=== PATIENT | male | born 1945 | race Two or more races ===

== ENCOUNTER → 2019-02-14 | Outpatient (CLI) | payer MEDICARE, MEDICAID ==
[~2019-02-14] MED LIST: ATORVASTATIN PO; BLOOD PRESSURE; DOXAZOSIN PO; HYDR-3237 PO; MELO7.5T31 PO; MOME13HF2 INH; PREDNISOLONE PO; REGADENOSON 0.4 MG/5 ML SYRINGE ONE; TAMSULOSIN
== END | disposition home or self-care (01) ==
LOC: CFH 08:11
PROVIDERS: ATTEND Internal Medicine Cardiovascular Disease
DX: I25.9 Chronic ischemic heart disease, unspecified (principal); I25.10 Atherosclerotic heart disease of native coronary artery without angina pectoris
CPT/HCPCS: 78452; 93017; A9502; J2785

== ENCOUNTER → 2020-02-11 | Outpatient (CLI) | payer MEDICARE, MEDICAID ==
[~2020-02-11] MED LIST changes: -REGADENOSON 0.4 MG/5 ML SYRINGE ONE
== END | disposition home or self-care (01) ==
LOC: CFH 10:02
PROVIDERS: ATTEND Internal Medicine Cardiovascular Disease
DX: I08.8 Other rheumatic multiple valve diseases (principal); I25.10 Atherosclerotic heart disease of native coronary artery without angina pectoris; I10 Essential (primary) hypertension
CPT/HCPCS: 93306

== ENCOUNTER 2021-05-15 08:27 | Observation (INO) | payer MEDICARE, MEDICAID ==
[~2021-05-15] VITALS: Ht 170.2 cm; Wt 74.3 kg
[2021-05-15] MEDS ORDERED: ATOR40TA PO (10:13)
[2021-05-15] MEDS ORDERED: AMLO-150 PO (10:13)
[2021-05-15] MEDS ORDERED: ASPI81TA45 PO (10:13)
[2021-05-15] MEDS ORDERED: TELM80TA PO (10:13)
[2021-05-15 10:16] VITALS: BP 157/78
[2021-05-15 10:21] LABS: BASOPHILS % (AUTO) 1 % (0-1); EOSINOPHILS % (AUTO) 1 % (1-7); LYMPHOCYTES % (AUTO) 34 % (22-44); MEAN CORPUSCULAR HEMOGLOBIN 30.6 pg (27.5-34.5); MEAN PLATELET VOLUME 9.4 fL (7.4-10.4); MONOCYTES % (AUTO) 8 % (2-9); NEUTROPHILS % (AUTO) 56 % (42-75); PLATELET COUNT 241 x10^3/uL (130-400); RED BLOOD COUNT 4.49 x10^6/uL (4.38-5.82); RED CELL DISTRIBUTION WIDTH 14.1 % (9.4-14.8)
[2021-05-15 10:30] LABS: ANION GAP 3 mmol/L (5-15); CALCIUM 8.9 mg/dL (8.5-10.1); CHLORIDE 109 mmol/L (98-107); CREATININE 1.01 mg/dL (0.7-1.3); INTERNATIONAL NORMALIZED RATIO 0.97 (0.93-1.1); PROTHROMBIN TIME 10.4 Seconds (9.6-11.5)
[2021-05-15] MEDS ORDERED: PLEASE ENTER HEIGHT AND WEIGHT MC SCH (10:30)
[2021-05-15] MEDS ORDERED: ASPIRIN 325 MG TABLET EC PO ONE (10:30)
[2021-05-15] MEDS ORDERED: FENTANYL PF 100 MCG/2ML ONE (11:33)
[2021-05-15] MEDS ORDERED: MIDAZOLAM 1 MG/ML, 5ML ONE (11:33)
[2021-05-15] MEDS ORDERED: LIDOCAINE-MPF 1%, 5ML ONE (11:34)
[2021-05-15] MEDS ORDERED: VERAPAMIL 2.5 MG/ML, 2ML ONE (11:34)
[2021-05-15] MEDS ORDERED: HEPARIN 1,000 UNITS/ML, 10ML ONE (11:34)
[2021-05-15] MEDS ORDERED: TICAGRELOR 90 MG TABLET ONE (11:34)
[2021-05-15] MEDS ORDERED: BIVALIRUDIN 250 MG ONE ×2 (11:34→12:21)
[2021-05-15] MEDS ORDERED: ASPIRIN 325 MG TABLET EC ONE (12:18)
[2021-05-15] MEDS: SODIUM CHLORIDE 0.9% 1,000 ML IV SCH ×3 (12:30→22:03)
[2021-05-15] MEDS ORDERED: BIVALIRUDIN 250 MG in SODIUM CHLORIDE 0.9% 50 ML IV SCH (12:30)
[2021-05-15] MEDS ORDERED: ZOLPIDEM 5MG TABLET PO PRN (12:30)
[2021-05-15 13:46] VITALS: BP 151/76
[2021-05-15 19:24] VITALS: BP 155/73
[2021-05-15] MEDS: TICAGRELOR 90 MG TABLET PO SCH (20:07)
[2021-05-15] MEDS ORDERED: ATORVASTATIN 40 MG TABLET PO SCH (21:00)
[2021-05-16 01:31] VITALS: BP 148/62
[2021-05-16 06:10] LABS: CHLORIDE 109 mmol/L (98-107)
[2021-05-16 06:15] LABS: CREATININE 0.92 mg/dL (0.7-1.3)
[2021-05-16 06:17] LABS: ANION GAP 8 mmol/L (5-15)
[2021-05-16 07:45] VITALS: BP 122/83
[2021-05-16] MEDS ORDERED: AMLODIPINE 5 MG TABLET PO SCH (09:00)
[2021-05-16] MEDS ORDERED: ASPIRIN 81 MG TABLET EC PO SCH ×2 (09:00)
[2021-05-16] MEDS: TICAGRELOR 90 MG TABLET PO SCH (09:00)
[2021-05-16] MEDS ORDERED: LOSARTAN 100 MG TAB PO SCH (09:00)
[2021-05-16 09:01] VITALS: BP 130/85
[2021-05-16] MEDS ORDERED: TICA90TA PO (09:36)
[2021-05-16 09:58] LABS: TROPONIN I 0.358 ng/mL (0.000-0.045)
== END 2021-05-16 11:30 | disposition home or self-care (01) ==
LOC: CACL 08:27 → 5SO 12:24
PROVIDERS: ADMIT Internal Medicine Cardiovascular Disease; ATTEND Internal Medicine Cardiovascular Disease
DX: I25.10 Atherosclerotic heart disease of native coronary artery without angina pectoris (principal); I10 Essential (primary) hypertension; E78.2 Mixed hyperlipidemia; Z79.82 Long term (current) use of aspirin; Z79.899 Other long term (current) drug therapy
CPT/HCPCS: 36415; 80048; 84484; 85025; 85610; 93005; 93458; 99156; 99157; C1725; C1769; C1874; C1894; C9600; G0378; J0583; J1644; J2250; J3010; Q9967